=== PATIENT | female | born 1945 | race Caucasian/White ===

== ENCOUNTER → 2017-03-08 | Outpatient (CLI) | payer OTHER, MEDICARE | LOC: BMCIMAGING 07:43 | PROVIDERS: ATTEND Internal Medicine | DX: Z12.31 Encounter for screening mammogram for malignant neoplasm of breast (principal) | CPT/HCPCS: G0202 ==

== ENCOUNTER → 2017-11-18 | Outpatient (CLI) | payer OTHER | LOC: BMCIMAGING 08:52 | PROVIDERS: ATTEND Orthopaedic Surgery | DX: M25.562 Pain in left knee (principal); M25.561 Pain in right knee ==

== ENCOUNTER → 2017-12-25 | Outpatient (CLI) | payer OTHER | LOC: BMCIMAGING 14:53 | PROVIDERS: ATTEND Internal Medicine | DX: R07.89 Other chest pain (principal) ==

== ENCOUNTER → 2018-01-03 | Outpatient (CLI) | payer OTHER | LOC: FIMAGING 12:49 | PROVIDERS: ATTEND Internal Medicine | DX: N64.4 Mastodynia (principal) ==

== ENCOUNTER → 2018-05-26 | Outpatient (CLI) | payer OTHER | LOC: BMCLAB 14:53 → BMCIMAGING 14:54 → EDSTATUS 14:54 | PROVIDERS: ATTEND Internal Medicine | DX: M25.572 Pain in left ankle and joints of left foot (principal) ==

== ENCOUNTER 2018-06-23 18:23 | Emergency (ER) | payer OTHER ==
[2018-06-23 18:32] VITALS: BP 120/72
[2018-06-23] MEDS ORDERED: ACETAMINOPHEN 325 MG TAB PO ONE (18:34)
--- NOTE | 2018-06-23 18:37 | EDPHY ---
General Time Seen by Provider: 06/23/18 18:29 Narrative: CHIEF COMPLAINT: Fall, head injury HISTORY OF PRESENT ILLNESS: Patient presents by EMS and is seen at time of arrival with complaints of fall and head injury. She states that she was walking out to her mailbox is prior to arrival when she slipped on the ice, landing on the back of her head. She states "my feet fluid in the air and landed on my head." Denies loss of consciousness. She does report a laceration on the back of the head. She has a 7/10 headache at the occiput. Pain radiates down the lower part of the head. She has no nausea or vomiting. No visual disturbance. No chest, back or abdominal pain. She denies actual neck pain but does have pain at the upper neck where it meets the head. She has worse pain with movement. Improved at rest. No other associated complaints or modifying factors REVIEW OF SYSTEMS: 10 systems were reviewed and negative with the exception of the elements mentioned in the history of present illness. PCP: Dr. Lucie Glaser SPECIALISTS: None currently PAST MEDICAL HISTORY: Osteoarthritis, appendicitis ANTICOAGULATED: No anticoagulant PAST SURGICAL HISTORY: Appendectomy remotely. Shoulder surgery. No recent surgery SOCIAL HISTORY: Never smoker. Lives independently in [place] FAMILY HISTORY: Noncontributory EXAMINATION: General Appearance: Alert, no distress Head: normocephalic. 2.5 cm occipital laceration that is oblique. No pulsatile bleeding. No foreign body. No exposure of the galea. No Quinonez sign. No raccoon eyes. no depression or deformity. Mild superficial hematoma over the occipital laceration. Eyes: Pupils equal and round, no conjunctival pallor or injection ENT, Mouth: Mucous membranes moist Neck: Normal inspection, supple, non-tender. No midline tenderness, crepitus, step-off or deformity. Painless range of motion all planes. Respiratory: Lungs are clear to auscultation Cardiovascular: Regular rate and rhythm. No murmur Gastrointestinal: Abdomen is soft and nontender Back: non-tender, no bony abnormalities Neurological: Cranial nerves 2-12 grossly intact. GCS 15. A&O, nonfocal, light sensory and strength symmetric. Skin: Warm and dry, no rash. Scalp laceration as above. Extremities: Nontender, no pedal edema Psychiatric: Mood and affect normal DIFFERENTIAL DIAGNOSES: Including but not limited to scalp laceration, occipital skull fracture, intracranial hemorrhage, cervical sprain, cervical strain MDM: 6:25 p.m. Reported mechanical fall without loss of consciousness with closed head injury. There is an occipital laceration with headache in the region that radiates down to the lower part of the head. She is neuro intact with no deficits. Given her age greater than 65, I have ordered CT scan of the head and cervical spine. The laceration will need irrigation closure. She is not anticoagulated. She is in no acute distress with normal vital signs. 7:05 p.m. Notified by radiologist Dr. Mata. CT scan of the head and cervical spine reveal no acute findings. There are chronic changes as documented. 7:15 p.m. Patient has been re-evaluated and the laceration has been closed with sindy as below. There was no injury to the galea. We discussed wound care. We discussed head injury precautions. We discussed follow up primary care physician and concussion specialist. I have answered all her questions. She has ambulated without difficulty. Discharged home stable condition. PROCEDURE: Laceration repair Consent: Verbal Location: Occipital scalp Length of repair: 2.5 cm Complexity: Simple Layer involvement: Single Anesthesia: Local. 0.25% Marcaine with epinephrine, 5 mL Irrigation: Extensive Debridement: None Procedure description: Following good anesthesia, the wound was copiously irrigated. Wound bed was explored with a sterile glove, and there is no foreign body noted. Wound borders were approximated well with good hemostasis. Tolerated well without complication. Suture/Staple material: 2 sindy Suture/Staple removal: 10 Days SUPERVISION: This patient was independently evaluated without direct involvement of or examination by the attending physician. CONSULTATION: None - Diagnostics Imaging: Discussed imaging studies w/ order caller Radiologist, I viewed and interpreted images myself - History History Review: I reviewed the patient's medical records - Objective Vital Signs: Initial Vital Signs Temperature (C) 98.1 F 06/23/18 18:27 Heart Rate 73 06/23/18 18:27 Respiratory Rate 16 06/23/18 18:27 Blood Pressure 120/72 06/23/18 18:27 O2 Sat (%) 96 06/23/18 18:27 O2 Delivery Mode Room Air Allergies/Adverse Reactions: bacitracin [From Neosporin] Allergy (Verified 06/23/18 18:27) bacitracin zinc [From Neosporin] Allergy (Verified 06/23/18 18:27) gramicidin D [From Neosporin] Allergy (Verified 06/23/18 18:27) neomycin sulfate [From Neosporin] Allergy (Verified 06/23/18 18:27) polymyxin B [From Neosporin] Allergy (Verified 06/23/18 18:27) polymyxin B sulfate [From Neosporin] Allergy (Verified 06/23/18 18:27) tetracycline [Tetracycline] Allergy (Verified 06/23/18 18:27) Home Medications: Medication Instructions Recorded Zolpidem Tartrate [Ambien] 0 mg PO HSPRN PRN 01/03/11 levOFLOXACIN [Levaquin] 750 mg PO DAILY #9 tab 01/03/11 metroNIDAZOLE [Flagyl 500 mg (*)] 500 mg PO Q6H 10 Days tab 01/03/11 oxyCODONE/APAP 5/325 [Percocet 5 - 10 mg PO Q4-6PRN PRN #25 tab 01/03/11 5/325] Medications Given: Discontinued Medications Acetaminophen (Tylenol) 650 mg PO EDNOW ONE Stop: 06/23/18 18:35 Last Admin: 06/23/18 18:43 Dose: 650 mg Departure - Departure Disposition: Home, Routine, Self-Care Clinical Impression: Occipital scalp laceration Qualifiers: Encounter type: initial encounter Qualified Code(s): S01.01XA - Laceration without foreign body of scalp, initial encounter Closed head injury Qualifiers: Encounter type: initial encounter Qualified Code(s): S09.90XA - Unspecified injury of head, initial encounter Fall due to ice or snow Qualifiers: Encounter type: initial encounter Qualified Code(s): W00.9XXA - Unspecified fall due to ice and snow, initial encounter Condition: Good Instructions: Head Injury (ED), Fall Prevention (ED), Laceration (ED), Staple Care (ED) Additional Instructions: 1. Thin layer of bacitracin once daily for the next 2 days 2. Keep the wound covered while showering for the next 24-48 hours 3. Contact primary care physician and Dr. Nino for outpatient care of the head injury 4. Return here for staple removal in 10 days. 5. Return here for signs of infection as discussed including warmth, redness, fever, drainage from the site 6. Return here for sudden change in symptoms, nausea, vomiting, neck pain or stiffness, continence of bowel or bladder, neuro changes as discussed 7. Do not submerge the wound in any water, hot tub, swimming pool until sutures removed Referrals: Lucie Glaser MD [[facility] [place] Primary Care Provider] - As per Instructions Supriya Nino MD [Medical Doctor] - As per Instructions
== END 2018-06-23 19:25 | disposition home or self-care (01) ==
LOC: EDUNIT#
PROC: 0HQ0XZZ Repair Scalp Skin, External Approach (ICD-10-PCS; principal; 2018-06-23)
DX: S01.01XA Laceration without foreign body of scalp, initial encounter (principal); M19.90 Unspecified osteoarthritis, unspecified site; W00.0XXA Fall on same level due to ice and snow, initial encounter; Y92.89 Other specified places as the place of occurrence of the external cause; Y93.9 Activity, unspecified

== ENCOUNTER → 2018-09-11 | Outpatient (CLI) | payer OTHER | LOC: BMCIMAGING 09:46 | PROVIDERS: ATTEND Internal Medicine | DX: Z13.820 Encounter for screening for osteoporosis (principal); M85.89 Other specified disorders of bone density and structure, multiple sites; Z78.0 Asymptomatic menopausal state ==

== ENCOUNTER → 2018-09-23 | Outpatient (CLI) | payer OTHER | LOC: FIMAGING 08:51 | PROVIDERS: ATTEND Surgery | DX: N64.4 Mastodynia (principal) ==